=== PATIENT | male | born 1965 | race Caucasian/White ===

== ENCOUNTER 2018-01-09 13:02 | Outpatient (CLI) | payer OTHER | END 2018-01-09 13:03 | disposition home or self-care (01) | LOC: BICULT 13:02 | PROVIDERS: ATTEND Urology | DX: Z12.5 Encounter for screening for malignant neoplasm of prostate (principal); N20.0 Calculus of kidney; R35.0 Frequency of micturition | CPT/HCPCS: 74018; 76770 ==

== ENCOUNTER 2019-03-25 08:58 | Outpatient (CLI) | payer OTHER ==
--- NOTE | 2019-03-25 10:25 | RAD ---
Exam: IVP: HISTORY: Calculus of kidney COMPARISON: 01/09/2018 FINDINGS: Blood Bank Laboratory Technologist film demonstrates several calculi in the upper pole of the left kidney. There is prompt bilater al excretion. The renal outlines are unremarkable. No evidence for hydronephrosis. No obstructing calculus. Unremarkable appearing urinary bladder. No postvoid residual. IMPRESSION: Multiple nonobstructing renal calculi in the upper pole of the left kidney.
== END 2019-03-25 08:59 | disposition home or self-care (01) ==
LOC: RAD 08:58
PROVIDERS: ATTEND Urology
DX: Z12.5 Encounter for screening for malignant neoplasm of prostate (principal); N20.0 Calculus of kidney; R35.0 Frequency of micturition
CPT/HCPCS: 74410

== ENCOUNTER 2020-09-30 08:21 | Outpatient (CLI) | payer BC ==
--- NOTE | 2020-09-30 09:35 | RAD ---
XR Abdomen 1 View/KUB History: Calculus of kidney Comparison: Radiograph 2019 Findings: Phleboliths in pelvis. The clustered calcifications in projects over the left renal pelvis on a similar location. No increase or decrease of calculus burden. No definite right-sided renal calculi are appreciated. Bone island of the right ilium. Impression: Similar appearance clustered calcifications left superior renal collecting system.
== END 2020-09-30 08:22 | disposition home or self-care (01) ==
LOC: RAD 08:21
PROVIDERS: ATTEND Urology
DX: N20.0 Calculus of kidney (principal); N28.89 Other specified disorders of kidney and ureter; Z12.5 Encounter for screening for malignant neoplasm of prostate; R35.0 Frequency of micturition
CPT/HCPCS: 74018; 80048; 81001; G0103

== ENCOUNTER 2024-03-14 10:00 | Outpatient (CLI) | payer BC | END 2024-03-14 10:01 | disposition home or self-care (01) | LOC: RAD 10:00 | PROVIDERS: ATTEND Urology | DX: N20.0 Calculus of kidney (principal); N28.89 Other specified disorders of kidney and ureter | CPT/HCPCS: 74018 ==

== ENCOUNTER 2024-10-15 08:31 | Outpatient (CLI) | payer BC | END 2024-10-15 08:32 | disposition home or self-care (01) | LOC: CT 08:31 | PROVIDERS: ATTEND Urology | DX: N13.2 Hydronephrosis with renal and ureteral calculous obstruction (principal) | CPT/HCPCS: 74176 ==

== ENCOUNTER 2024-10-16 12:25 | Outpatient (CLI) | payer BC ==
[2024-10-16 13:52] LABS: #Basophils Less than 0.03 10x3/uL (0.0-0.2); %Basophils 0.4 % (0.0-1.0); %Eosinophils 2.9 % (0.0-10.0); %Monocytes 10.9 % (0.0-10.0); %Neutrophils 53.8 % (42.0-75.0); Hematocrit 43.4 % (42.0-52.0); Hemoglobin 15.2 g/dL (14.0-18.0); Mean Corpuscular Hemoglobin 30.9 pg (27.0-31.0); Mean Corpuscular Volume 88.2 fL (78.0-98.0); Mean Platelet Volume 9.2 fL (7.4-10.4); Platelet Count 255 10x3/uL (130-400); RBC Distribution Width 12.3 % (11.5-14.5); Red Blood Cell (RBC) Count 4.92 mill/uL (4.70-6.10)
[2024-10-16 13:54] LABS: Bacteria/HPF None Seen HPF (None Seen); Bilirubin Negative (Negative); Blood, Urine Negative (Negative); Clarity Clear (Clear); Glucose, Urine (Dipstick) Normal (Negative); Ketone, Urine Negative (Negative); Leukocyte Negative Leu/uL (Negative); Nitrite Negative (Negative); Protein, Urine (Dipstick) Negative (Neg-Trace); RBC/HPF 0-3 HPF (0-3); Squamous Epithelial None Seen HPF (0-3); Urobilinogen Normal mg/dL (Less than 2); WBC/HPF 0-3 HPF (0-3)
[2024-10-16 14:17] LABS: Anion Gap 11 mmol/L (10-20); BUN (Urea Nitrogen) 19 mg/dL (8.4-25.7); Calc. Creatinine Clearance 0 mL/min (70-130); Calcium 9.1 mg/dL (7.8-10.44); Carbon Dioxide 27 mmol/L (22-29); Chloride 106 mmol/L (98-107); Estimated GFR 94; Glucose 93 mg/dL (70-105); Potassium 3.9 mmol/L (3.5-5.1); Sodium 140 mmol/L (136-145)
[2024-10-16 14:38] LABS: PTT 30.5 sec (22.9-36.1); Prothrombin Time 13.1 sec (12.0-14.7)
== END 2024-10-16 12:26 | disposition home or self-care (01) ==
LOC: LABBT 12:25
PROVIDERS: ATTEND Urology
DX: Z01.818 Encounter for other preprocedural examination (principal); N20.0 Calculus of kidney
CPT/HCPCS: 71046; 80048; 81001; 85025; 85610; 85730; 87086; 93005; 93010

== ENCOUNTER 2024-10-30 07:51 | Outpatient (CLI) | payer BC | END 2024-10-30 07:52 | disposition home or self-care (01) | LOC: CT 07:51 | PROVIDERS: ATTEND Urology | DX: N20.0 Calculus of kidney (principal); T83.192A Other mechanical complication of indwelling ureteral stent, initial encounter | CPT/HCPCS: 74176 ==

== ENCOUNTER 2024-10-31 09:53 | Outpatient (CLI) | payer BC ==
[2024-10-31 11:43] LABS: #Basophils 0.04 10x3/uL (0.0-0.2); %Basophils 0.7 % (0.0-1.0); %Eosinophils 2.7 % (0.0-10.0); %Lymphocytes 27.1 % (21.0-51.0); %Monocytes 10.8 % (0.0-10.0); %Neutrophils 58.3 % (42.0-75.0); Hemoglobin 15.4 g/dL (14.0-18.0); Mean Corpuscular HGB CONC 34.2 g/dL (32.0-36.0); Mean Corpuscular Hemoglobin 30.3 pg (27.0-31.0); Mean Corpuscular Volume 88.6 fL (78.0-98.0); Platelet Count 249 10x3/uL (130-400); RBC Distribution Width 12.4 % (11.5-14.5); Red Blood Cell (RBC) Count 5.08 mill/uL (4.70-6.10)
[2024-10-31 11:56] LABS: Prothrombin Time 12.9 sec (12.0-14.7)
[2024-10-31 11:57] LABS: PTT 30.4 sec (22.9-36.1)
[2024-10-31 12:01] LABS: Anion Gap 11 mmol/L (10-20); BUN (Urea Nitrogen) 14 mg/dL (8.4-25.7); Calc. Creatinine Clearance 0 mL/min (70-130); Calcium 9.6 mg/dL (7.8-10.44); Carbon Dioxide 29 mmol/L (22-29); Chloride 104 mmol/L (98-107); Estimated GFR 92; Glucose 102 mg/dL (70-105); Potassium 4.2 mmol/L (3.5-5.1); Sodium 140 mmol/L (136-145)
== END 2024-10-31 09:54 | disposition home or self-care (01) ==
LOC: LABBT 09:53
PROVIDERS: ATTEND Urology
DX: Z01.812 Encounter for preprocedural laboratory examination (principal); N20.1 Calculus of ureter
CPT/HCPCS: 80048; 85025; 85610; 85730

== ENCOUNTER 2025-05-01 10:07 | Outpatient (CLI) | payer BC | END 2025-05-01 10:08 | disposition home or self-care (01) | LOC: ULT 10:07 | PROVIDERS: ATTEND Urology | DX: N20.0 Calculus of kidney (principal); R39.198 Other difficulties with micturition | CPT/HCPCS: 74018; 76770 ==